=== PATIENT | female | born 1945 | race Caucasian/White ===

== ENCOUNTER 2021-02-23 11:09 | Day surgery (SDC) | payer MEDICARE, MEDICAID ==
[~2021-02-23] VITALS: Ht 165.1 cm; Wt 69.0 kg
[~2021-02-23 11:09] MED LIST: SODIUM CHLORIDE 0.9% 1,000 ML IV SCH
[2021-02-23 12:01] VITALS: BP 94/61
[2021-02-23] MEDS ORDERED: FENTANYL PF 100 MCG/2ML ONE (12:11)
[2021-02-23] MEDS ORDERED: VERAPAMIL 2.5 MG/ML, 2ML ONE (12:12)
[2021-02-23] MEDS ORDERED: HEPARIN 1,000 UNITS/ML, 10ML ONE (12:12)
[2021-02-23] MEDS ORDERED: MIDAZOLAM 1 MG/ML, 5ML ONE (12:12)
[2021-02-23] MEDS ORDERED: BIVALIRUDIN 250 MG ONE (12:12)
[2021-02-23] MEDS ORDERED: LIDOCAINE-MPF 1%, 5ML ONE (12:12)
[2021-02-23] MEDS ORDERED: NITROGLYCERIN 5 MG/ML, 10ML ONE (12:13)
[2021-02-23 12:20] LABS: BASOPHILS % (AUTO) 1 % (0-1); EOSINOPHILS % (AUTO) 2 % (1-7); LYMPHOCYTES % (AUTO) 15 % (22-44); MEAN CORPUSCULAR HEMOGLOBIN 26.5 pg (27.0-34.8); MEAN CORPUSCULAR HGB CONC 31.7 g/dL (32.4-35.8); MEAN PLATELET VOLUME 9.7 fL (7.4-10.4); MONOCYTES % (AUTO) 6 % (2-9); NEUTROPHILS % (AUTO) 77 % (42-75); PLATELET COUNT 176 x10^3/uL (130-400); RED BLOOD COUNT 4.41 x10^6/uL (3.82-5.3); RED CELL DISTRIBUTION WIDTH 16.6 % (9.6-15.2)
[2021-02-23] MEDS ORDERED: ONDANSETRON 2MG/ML, 2ML ONE (12:25)
[2021-02-23] MEDS ORDERED: FURO-93 PO (12:26)
[2021-02-23] MEDS ORDERED: methylPREDNISolone SOD SUCC 125 MG/2 ML ONE (12:26)
[2021-02-23] MEDS ORDERED: DIPHENHYDRAMINE 50 MG/ML, 1ML ONE (12:26)
[2021-02-23] MEDS ORDERED: CARV25TA PO (12:26)
[2021-02-23] MEDS ORDERED: ATOR80TA PO (12:26)
[2021-02-23] MEDS ORDERED: ISOS40TA17 PO (12:26)
[2021-02-23] MEDS ORDERED: CLOP75TA52 PO (12:26)
[2021-02-23] MEDS ORDERED: LOPE-114 PO (12:26)
[2021-02-23] MEDS ORDERED: FAMO-79 PO (12:26)
[2021-02-23] MEDS ORDERED: POTA20TA14 PO (12:26)
[2021-02-23] MEDS ORDERED: NIAC500C8 PO (12:26)
[2021-02-23] MEDS ORDERED: ASPI-963 PO (12:26)
[2021-02-23] MEDS ORDERED: BUPR150T73 PO (12:26)
[2021-02-23] MEDS ORDERED: FLUT1AER INH (12:26)
[2021-02-23] MEDS ORDERED: METF500T17 PO (12:26)
[2021-02-23] MEDS ORDERED: SACU1TAB PO (12:26)
[2021-02-23] MEDS ORDERED: NITR0.4T41 SL (12:26)
[2021-02-23] MEDS ORDERED: GLIM4TAB PO (12:26)
[2021-02-23] MEDS ORDERED: DULA3PEN SQ (12:26)
[2021-02-23] MEDS ORDERED: TIOT18CA INH (12:26)
[2021-02-23] MEDS ORDERED: ALBU18HF INH (12:26)
[2021-02-23 12:28] LABS: ANION GAP 8 mmol/L (5-15); CALCIUM 9.2 mg/dL (8.5-10.1); CHLORIDE 104 mmol/L (98-107); CREATININE 0.93 mg/dL (0.55-1.02)
[2021-02-23] MEDS ORDERED: PLEASE ENTER ALLERGIES MC SCH (12:30)
[2021-02-23] MEDS ORDERED: FUROSEMIDE 40 MG/4 ML ONE (13:19)
== END 2021-02-23 15:31 | disposition home or self-care (01) ==
LOC: CACL 11:09
PROVIDERS: ATTEND Internal Medicine Cardiovascular Disease
DX: I11.0 Hypertensive heart disease with heart failure (principal); I50.23 Acute on chronic systolic (congestive) heart failure; I25.10 Atherosclerotic heart disease of native coronary artery without angina pectoris; I25.84 Coronary atherosclerosis due to calcified coronary lesion; I25.83 Coronary atherosclerosis due to lipid rich plaque; I25.82 Chronic total occlusion of coronary artery; I25.5 Ischemic cardiomyopathy; I25.2 Old myocardial infarction; E11.9 Type 2 diabetes mellitus without complications; E78.5 Hyperlipidemia, unspecified; Z79.82 Long term (current) use of aspirin; Z79.84 Long term (current) use of oral hypoglycemic drugs; Z79.899 Other long term (current) drug therapy; Z87.891 Personal history of nicotine dependence; Z88.2 Allergy status to sulfonamides; Z91.013 Allergy to seafood; Z99.81 Dependence on supplemental oxygen
CPT/HCPCS: 36415; 75630; 80048; 85025; 93458; 99156; 99157; C1769; C1894; J1200; J1644; J1940; J2250; J2405; J2930; J3010; Q9967; 75625; J0583

== ENCOUNTER 2021-03-23 10:37 | Inpatient (IN) | payer MEDICARE, MEDICAID ==
[~2021-03-23] VITALS: Ht 165.1 cm; Wt 71.2 kg
[~2021-03-23 10:37] MED LIST changes: +ALBU18HF INH; +ASPI-963 PO; +ATOR80TA PO; +BUPR150T73 PO; +CARV25TA PO; +CLOP75TA52 PO; +DULA3PEN SQ; +FAMO-79 PO; +FLUT1AER INH; +FURO-93 PO; +GLIM4TAB PO; +ISOS40TA17 PO; +LOPE-114 PO; +METF500T17 PO; +NIAC500C8 PO; +NITR0.4T41 SL; +POTA20TA14 PO; +SACU1TAB PO; -SODIUM CHLORIDE 0.9% 1,000 ML IV SCH; +TIOT18CA INH
[2021-03-23 11:34] VITALS: BP 107/61
[2021-03-23 11:58] LABS: BASOPHILS % (AUTO) 1 % (0-1); EOSINOPHILS % (AUTO) 2 % (1-7); LYMPHOCYTES % (AUTO) 15 % (22-44); MEAN CORPUSCULAR HEMOGLOBIN 26.6 pg (27.0-34.8); MEAN PLATELET VOLUME 9.9 fL (7.4-10.4); MONOCYTES % (AUTO) 8 % (2-9); NEUTROPHILS % (AUTO) 75 % (42-75); PLATELET COUNT 197 x10^3/uL (130-400); RED BLOOD COUNT 4.07 x10^6/uL (3.82-5.3); RED CELL DISTRIBUTION WIDTH 16.1 % (9.6-15.2)
[2021-03-23 12:07] LABS: ANION GAP 10 mmol/L (5-15); CALCIUM 9.3 mg/dL (8.5-10.1); CHLORIDE 103 mmol/L (98-107)
[2021-03-23] MEDS ORDERED: PROPOFOL 50 ML ONE (12:31)
[2021-03-23] MEDS ORDERED: FENTANYL PF 250 MCG/5ML ONE (12:31)
[2021-03-23] MEDS ORDERED: BIVALIRUDIN 250 MG ONE ×2 (12:55→14:30)
[2021-03-23] MEDS ORDERED: LIDOCAINE 2%, 20ML ONE (13:01)
[2021-03-23] MEDS ORDERED: ROCURONIUM 10MG/ML,5ML ONE (14:08)
[2021-03-23] MEDS ORDERED: PROPOFOL 10 MG/ML, 20ML ONE (14:16)
[2021-03-23] MEDS ORDERED: EPHEDRINE 50 MG/ML, 1ML IM PRN (14:30)
[2021-03-23] MEDS ORDERED: ACETAMINOPHEN 325 MG TABLET PO PRN (14:30)
[2021-03-23] MEDS ORDERED: morphine SULFATE 10 MG/ML, 1ML IVPush PRN (14:30)
[2021-03-23] MEDS ORDERED: PROMETHAZINE 25 MG/ML, 1ML IVPush PRN (14:30)
[2021-03-23] MEDS ORDERED: OXYcodone 5 MG/5 ML ORAL.SOL UDC PO PRN (14:30)
[2021-03-23] MEDS ORDERED: ONDANSETRON 2MG/ML, 2ML IVPush PRN (14:30)
[2021-03-23] MEDS ORDERED: DIAZEPAM 5 MG/ML, 2ML IVPush PRN (14:30)
[2021-03-23] MEDS ORDERED: DIPHENHYDRAMINE 50 MG/ML, 1ML IVPush PRN (14:30)
[2021-03-23] MEDS ORDERED: EPHEDRINE 50 MG/ML, 1ML IVPush PRN (14:30)
[2021-03-23] MEDS ORDERED: FENTANYL PF 100 MCG/2ML IV PRN (14:30)
[2021-03-23] MEDS ORDERED: NITROGLYCERIN SINGLE TAB 0.4 MG SL PRN (15:00)
[2021-03-23] MEDS ORDERED: MIDAZOLAM 1 MG/ML, 2ML ONE (15:20)
[2021-03-23] MEDS ORDERED: FENTANYL PF 100 MCG/2ML ONE (15:20)
[2021-03-23] MEDS ORDERED: MORPHINE SULFATE 4 MG/ML, 1ML ONE ×2 (16:07→16:32)
[2021-03-23] MEDS: morphine SULFATE 10 MG/ML, 1ML IVPush PRN ×5 (16:18→17:53)
[2021-03-23] MEDS ORDERED: FUROSEMIDE 40 MG/4 ML ONE (16:37)
[2021-03-23] MEDS ORDERED: ONDANSETRON 2MG/ML, 2ML ONE (16:41)
[2021-03-23] MEDS ORDERED: FUROSEMIDE 40 MG/4 ML IV ONE (17:00)
[2021-03-23] MEDS: SODIUM CHLORIDE 0.9% 1,000 ML IV SCH ×2 (17:44→21:26)
[2021-03-23 19:41] VITALS: BP 108/68
[2021-03-23] MEDS ORDERED: CARVEDILOL 25 MG TABLET PO SCH (21:00)
[2021-03-23] MEDS: BUPROPION SR 150 MG TABLET PO SCH (21:25)
[2021-03-23] MEDS: ATORVASTATIN 80 MG TABLET PO SCH (21:26)
[2021-03-23] MEDS: ISOSORBIDE DINITRATE 30 MG TABLET PO SCH (21:26)
[2021-03-24 01:35] VITALS: BP 111/74
[2021-03-24 04:51] LABS: ANION GAP 9 mmol/L (5-15); CALCIUM 8.5 mg/dL (8.5-10.1); CHLORIDE 98 mmol/L (98-107)
[2021-03-24 04:52] LABS: CREATININE 1.07 mg/dL (0.55-1.02)
[2021-03-24] MEDS: SODIUM CHLORIDE 0.9% 1,000 ML IV SCH ×3 (07:00→23:00)
[2021-03-24 07:24] VITALS: BP 95/57
[2021-03-24] MEDS ORDERED: NIACIN 500 MG TABLET.ER PO SCH (09:00)
[2021-03-24] MEDS: SACUBITRIL/VALSARTAN 24MG-26MG TAB PO SCH (10:36)
[2021-03-24] MEDS: ISOSORBIDE DINITRATE 30 MG TABLET PO SCH ×2 (10:36→21:26)
[2021-03-24] MEDS: [UNRECOGNIZED DRUG - OTHER] PO SCH (10:37)
[2021-03-24] MEDS: ASPIRIN 81 MG TABLET EC PO SCH (10:37)
[2021-03-24] MEDS: BUPROPION SR 150 MG TABLET PO SCH ×2 (10:37→21:26)
[2021-03-24] MEDS: CLOPIDOGREL 75 MG TABLET PO SCH (10:38)
[2021-03-24] MEDS: FUROSEMIDE 40 MG TABLET PO SCH (10:38)
[2021-03-24] MEDS: POTASSIUM CHLORIDE 20 MEQ TAB.ER.PRT PO SCH (10:38)
[2021-03-24 13:04] VITALS: BP 102/60
[2021-03-24 20:05] VITALS: BP 95/62
[2021-03-24 21:25] VITALS: BP 94/65
[2021-03-24] MEDS: CARVEDILOL 25 MG TABLET PO SCH (21:27)
[2021-03-24] MEDS: ATORVASTATIN 80 MG TABLET PO SCH (21:27)
[2021-03-25 01:11] VITALS: BP 96/64
[2021-03-25] MEDS: SODIUM CHLORIDE 0.9% 1,000 ML IV SCH ×3 (05:51→22:28)
[2021-03-25 07:48] VITALS: BP 97/63
[2021-03-25] MEDS: BUPROPION SR 150 MG TABLET PO SCH ×2 (08:29→20:18)
[2021-03-25] MEDS: CLOPIDOGREL 75 MG TABLET PO SCH (08:30)
[2021-03-25] MEDS: FUROSEMIDE 40 MG TABLET PO SCH (08:30)
[2021-03-25] MEDS: CARVEDILOL 25 MG TABLET PO SCH (08:30)
[2021-03-25] MEDS: ASPIRIN 81 MG TABLET EC PO SCH (08:30)
[2021-03-25] MEDS: [UNRECOGNIZED DRUG - OTHER] PO SCH (08:30)
[2021-03-25] MEDS: POTASSIUM CHLORIDE 20 MEQ TAB.ER.PRT PO SCH (08:30)
[2021-03-25] MEDS: ISOSORBIDE DINITRATE 30 MG TABLET PO SCH ×2 (08:30→20:18)
[2021-03-25] MEDS ORDERED: FUROSEMIDE 20 MG/2 ML ONE (10:39)
[2021-03-25] MEDS: FUROSEMIDE 20 MG/2 ML IV ONE ×2 (10:47→11:00)
[2021-03-25] MEDS: SACUBITRIL/VALSARTAN 24MG-26MG TAB PO SCH ×2 (10:47→11:10)
[2021-03-25 11:07] VITALS: BP 82/51
[2021-03-25 11:10] LABS: ANION GAP 9 mmol/L (5-15); CALCIUM 8.9 mg/dL (8.5-10.1); CHLORIDE 98 mmol/L (98-107); CREATININE 1.18 mg/dL (0.55-1.02)
[2021-03-25 14:05] VITALS: BP 108/68
[2021-03-25 20:13] VITALS: BP 92/59
[2021-03-25] MEDS: ATORVASTATIN 80 MG TABLET PO SCH (20:18)
[2021-03-26 00:52] VITALS: BP 98/64
[2021-03-26] MEDS ORDERED: ACETAMINOPHEN 325 MG TABLET PO ONE (04:00)
[2021-03-26] MEDS: SODIUM CHLORIDE 0.9% 1,000 ML IV SCH ×3 (06:00→22:32)
[2021-03-26 08:38] VITALS: BP 86/59
[2021-03-26] MEDS ORDERED: CARV25TA PO (08:39)
[2021-03-26] MEDS: FUROSEMIDE 40 MG TABLET PO SCH (09:00)
[2021-03-26] MEDS: SACUBITRIL/VALSARTAN 24MG-26MG TAB PO SCH (09:00)
[2021-03-26] MEDS: POTASSIUM CHLORIDE 20 MEQ TAB.ER.PRT PO SCH (10:39)
[2021-03-26] MEDS: BUPROPION SR 150 MG TABLET PO SCH ×2 (10:39→20:35)
[2021-03-26] MEDS: [UNRECOGNIZED DRUG - OTHER] PO SCH (10:39)
[2021-03-26] MEDS: ASPIRIN 81 MG TABLET EC PO SCH (10:39)
[2021-03-26] MEDS: CLOPIDOGREL 75 MG TABLET PO SCH (10:40)
[2021-03-26] MEDS ORDERED: SUCCINYLCHOLINE 20 MG/ML, 10ML ONE (13:01)
[2021-03-26 13:36] VITALS: BP 96/64
[2021-03-26] MEDS ORDERED: OXYcodone/APAP 5/325MG TABLET PO PRN (17:00)
[2021-03-26 20:00] VITALS: BP 104/66
[2021-03-26] MEDS: ATORVASTATIN 80 MG TABLET PO SCH (20:35)
[2021-03-27] MEDS: ACETAMINOPHEN 325 MG TABLET PO PRN (00:43)
[2021-03-27 00:56] VITALS: BP 108/71
[2021-03-27 05:48] LABS: BASOPHILS % (AUTO) 1 % (0-1); EOSINOPHILS % (AUTO) 2 % (1-7); LYMPHOCYTES % (AUTO) 23 % (22-44); MEAN CORPUSCULAR HEMOGLOBIN 26.7 pg (27.0-34.8); MEAN CORPUSCULAR HGB CONC 32.3 g/dL (32.4-35.8); MEAN PLATELET VOLUME 9.6 fL (7.4-10.4); MONOCYTES % (AUTO) 11 % (2-9); NEUTROPHILS % (AUTO) 64 % (42-75); PLATELET COUNT 188 x10^3/uL (130-400); RED BLOOD COUNT 3.68 x10^6/uL (3.82-5.3); RED CELL DISTRIBUTION WIDTH 15.9 % (9.6-15.2)
[2021-03-27 06:09] LABS: ALANINE AMINOTRANSFERASE 13 U/L (12-78); ALBUMIN 2.8 g/dL (3.4-5.0); ANION GAP 7 mmol/L (5-15); CALCIUM 9.3 mg/dL (8.5-10.1); CHLORIDE 103 mmol/L (98-107); CREATININE 0.76 mg/dL (0.55-1.02)
[2021-03-27 06:19] LABS: ALKALINE PHOSPHATASE 193 U/L (45-117); BILIRUBIN,TOTAL 0.5 mg/dL (0.2-1.0); TOTAL PROTEIN 6.2 g/dL (6.4-8.2)
[2021-03-27 09:21] VITALS: BP 94/61
[2021-03-27] MEDS: SACUBITRIL/VALSARTAN 24MG-26MG TAB PO SCH (09:27)
[2021-03-27] MEDS: FUROSEMIDE 40 MG TABLET PO SCH (09:28)
[2021-03-27] MEDS: ASPIRIN 81 MG TABLET EC PO SCH (09:29)
[2021-03-27] MEDS: CLOPIDOGREL 75 MG TABLET PO SCH (09:29)
[2021-03-27] MEDS: [UNRECOGNIZED DRUG - OTHER] PO SCH (09:29)
[2021-03-27] MEDS: POTASSIUM CHLORIDE 20 MEQ TAB.ER.PRT PO SCH (09:29)
[2021-03-27] MEDS: BUPROPION SR 150 MG TABLET PO SCH ×2 (09:29→21:00)
[2021-03-27] MEDS ORDERED: DEXTROSE 50%, 50ML SYRINGE IVPush PRN (12:00)
[2021-03-27] MEDS ORDERED: GLUCAGON 1 MG IM PRN (12:00)
[2021-03-27] MEDS ORDERED: DEXTROSE 4 GM TAB.CHEW PO PRN (12:00)
[2021-03-27] MEDS: INSULIN REGULAR 100 UNITS/ML, 3ML VIAL SQ-INSULIN SCH ×3 (12:55→21:00)
[2021-03-27] MEDS: FLUTICASONE/VILANTEROL 100-25MCG/INH INH SCH (12:56)
[2021-03-27] MEDS: ALBUTEROL HFA 90 MCG/SPRAY INH SCH ×2 (12:57→17:17)
[2021-03-27 13:00] VITALS: BP 90/60
[2021-03-27 14:00] VITALS: BP 94/56
[2021-03-27] MEDS: CARVEDILOL 3.125 MG TABLET PO SCH (17:56)
[2021-03-27] MEDS ORDERED: OMNIPAQUE 350 MG/ML, 100ML BOTTLE ONE (18:30)
[2021-03-27 18:49] VITALS: BP 122/78
[2021-03-27] MEDS ORDERED: INSULIN GLARGINE 100 UNITS/ML, PEN SQ-INSULIN SCH (21:00)
[2021-03-27] MEDS: ATORVASTATIN 80 MG TABLET PO SCH (21:44)
[2021-03-27] MEDS: SODIUM CHLORIDE FLUSH 10ML SYR IVF SCH (21:45)
[2021-03-28] MEDS: ALBUTEROL HFA 90 MCG/SPRAY INH SCH ×3 (00:15→12:32)
[2021-03-28 00:18] VITALS: BP_SYST 103; BP_SYST 99; BP_DIAS 59; BP_DIAS 70
[2021-03-28] MEDS: ACETAMINOPHEN 325 MG TABLET PO PRN (02:06)
[2021-03-28] MEDS: CARVEDILOL 3.125 MG TABLET PO SCH ×2 (06:00→18:14)
[2021-03-28 06:58] VITALS: BP 103/68
[2021-03-28] MEDS: INSULIN REGULAR 100 UNITS/ML, 3ML VIAL SQ-INSULIN SCH ×4 (08:38→20:24)
[2021-03-28] MEDS: SODIUM CHLORIDE FLUSH 10ML SYR IVF SCH ×2 (08:40→20:25)
[2021-03-28] MEDS: FLUTICASONE/VILANTEROL 100-25MCG/INH INH SCH (08:40)
[2021-03-28] MEDS: FUROSEMIDE 40 MG TABLET PO SCH (08:42)
[2021-03-28] MEDS: CLOPIDOGREL 75 MG TABLET PO SCH (08:42)
[2021-03-28] MEDS: BUPROPION SR 150 MG TABLET PO SCH ×2 (08:42→20:25)
[2021-03-28] MEDS: [UNRECOGNIZED DRUG - OTHER] PO SCH (08:42)
[2021-03-28] MEDS: ASPIRIN 81 MG TABLET EC PO SCH (08:42)
[2021-03-28] MEDS: SACUBITRIL/VALSARTAN 24MG-26MG TAB PO SCH (08:42)
[2021-03-28] MEDS: POTASSIUM CHLORIDE 20 MEQ TAB.ER.PRT PO SCH (08:42)
[2021-03-28 13:20] VITALS: BP 93/62
[2021-03-28] MEDS ORDERED: ALBUTEROL HFA 90 MCG/SPRAY INH PRN (15:00)
[2021-03-28] MEDS: LOPERAMIDE 2 MG CAPSULE PO PRN ×2 (15:06→20:25)
[2021-03-28 19:09] VITALS: BP 97/66
[2021-03-28] MEDS: INSULIN GLARGINE 100 UNITS/ML, PEN SQ-INSULIN SCH (20:24)
[2021-03-28] MEDS: ATORVASTATIN 80 MG TABLET PO SCH (20:25)
[2021-03-29] MEDS: ACETAMINOPHEN 325 MG TABLET PO PRN (00:51)
[2021-03-29 00:54] VITALS: BP 100/68
[2021-03-29 05:23] VITALS: BP 133/81
[2021-03-29] MEDS: CARVEDILOL 3.125 MG TABLET PO SCH ×2 (05:25→16:53)
[2021-03-29 05:38] LABS: BASOPHILS % (AUTO) 1 % (0-1); EOSINOPHILS % (AUTO) 3 % (1-7); LYMPHOCYTES % (AUTO) 22 % (22-44); MEAN CORPUSCULAR HEMOGLOBIN 26.8 pg (27.0-34.8); MEAN PLATELET VOLUME 9.3 fL (7.4-10.4); MONOCYTES % (AUTO) 11 % (2-9); NEUTROPHILS % (AUTO) 63 % (42-75); PLATELET COUNT 180 x10^3/uL (130-400)
[2021-03-29 05:47] LABS: CHLORIDE 104 mmol/L (98-107)
[2021-03-29 05:53] LABS: ANION GAP 5 mmol/L (5-15); CALCIUM 9.1 mg/dL (8.5-10.1); CREATININE 0.72 mg/dL (0.55-1.02)
[2021-03-29 07:05] VITALS: BP 108/72
[2021-03-29] MEDS: INSULIN REGULAR 100 UNITS/ML, 3ML VIAL SQ-INSULIN SCH ×4 (07:59→21:00)
[2021-03-29] MEDS: SODIUM CHLORIDE FLUSH 10ML SYR IVF SCH ×2 (07:59→21:56)
[2021-03-29] MEDS: [UNRECOGNIZED DRUG - OTHER] PO SCH (08:00)
[2021-03-29] MEDS: FLUTICASONE/VILANTEROL 100-25MCG/INH INH SCH (08:00)
[2021-03-29] MEDS: CLOPIDOGREL 75 MG TABLET PO SCH (08:00)
[2021-03-29] MEDS: BUPROPION SR 150 MG TABLET PO SCH ×2 (08:00→21:55)
[2021-03-29] MEDS: POTASSIUM CHLORIDE 20 MEQ TAB.ER.PRT PO SCH (08:00)
[2021-03-29] MEDS: ASPIRIN 81 MG TABLET EC PO SCH (08:01)
[2021-03-29] MEDS: FUROSEMIDE 40 MG TABLET PO SCH (08:01)
[2021-03-29] MEDS: SACUBITRIL/VALSARTAN 24MG-26MG TAB PO SCH (08:01)
[2021-03-29] MEDS: LOPERAMIDE 2 MG CAPSULE PO PRN (08:11)
[2021-03-29 10:19] LABS: INTERNATIONAL NORMALIZED RATIO 1.02 (0.93-1.1); PROTHROMBIN TIME 10.9 Seconds (9.6-11.5)
[2021-03-29 13:56] VITALS: BP 97/48
[2021-03-29 19:15] VITALS: BP 120/73
[2021-03-29] MEDS: ATORVASTATIN 80 MG TABLET PO SCH (21:55)
[2021-03-29] MEDS: INSULIN GLARGINE 100 UNITS/ML, PEN SQ-INSULIN SCH (21:56)
[2021-03-30 01:05] VITALS: BP 111/69
[2021-03-30 05:22] VITALS: BP 131/83
[2021-03-30] MEDS: CARVEDILOL 3.125 MG TABLET PO SCH ×2 (05:24→17:07)
[2021-03-30 07:32] VITALS: BP 106/70
[2021-03-30] MEDS: POTASSIUM CHLORIDE 20 MEQ TAB.ER.PRT PO SCH (07:38)
[2021-03-30] MEDS: [UNRECOGNIZED DRUG - OTHER] PO SCH (07:38)
[2021-03-30] MEDS: FLUTICASONE/VILANTEROL 100-25MCG/INH INH SCH (07:38)
[2021-03-30] MEDS: SACUBITRIL/VALSARTAN 24MG-26MG TAB PO SCH (07:38)
[2021-03-30] MEDS: LOPERAMIDE 2 MG CAPSULE PO PRN (07:38)
[2021-03-30] MEDS: BUPROPION SR 150 MG TABLET PO SCH ×2 (07:38→20:30)
[2021-03-30] MEDS: FUROSEMIDE 40 MG TABLET PO SCH (07:38)
[2021-03-30] MEDS: SODIUM CHLORIDE FLUSH 10ML SYR IVF SCH ×2 (07:39→20:30)
[2021-03-30] MEDS: INSULIN REGULAR 100 UNITS/ML, 3ML VIAL SQ-INSULIN SCH ×4 (07:42→20:50)
[2021-03-30 08:16] LABS: BASOPHILS % (AUTO) 1 % (0-1); EOSINOPHILS % (AUTO) 3 % (1-7); LYMPHOCYTES % (AUTO) 18 % (22-44); MEAN CORPUSCULAR HEMOGLOBIN 26.2 pg (27.0-34.8); MEAN CORPUSCULAR HGB CONC 31.4 g/dL (32.4-35.8); MEAN PLATELET VOLUME 9.2 fL (7.4-10.4); MONOCYTES % (AUTO) 10 % (2-9); NEUTROPHILS % (AUTO) 68 % (42-75); PLATELET COUNT 198 x10^3/uL (130-400)
[2021-03-30 08:31] LABS: ANION GAP 5 mmol/L (5-15); CALCIUM 9.7 mg/dL (8.5-10.1); CHLORIDE 104 mmol/L (98-107); CREATININE 0.76 mg/dL (0.55-1.02)
[2021-03-30] MEDS ORDERED: NALOXONE 1 MG/ML, 2ML ONE (10:20)
[2021-03-30] MEDS ORDERED: FENTANYL PF 100 MCG/2ML ONE (10:20)
[2021-03-30] MEDS ORDERED: MIDAZOLAM 1 MG/ML, 5ML ONE (10:20)
[2021-03-30] MEDS ORDERED: FLUMAZENIL 0.1 MG/1 ML, 5ML ONE (10:20)
[2021-03-30] MEDS: CLOPIDOGREL 75 MG TABLET PO SCH (12:20)
[2021-03-30] MEDS: ASPIRIN 81 MG TABLET EC PO SCH (12:21)
[2021-03-30] MEDS: ACETAMINOPHEN 325 MG TABLET PO PRN ×2 (12:23→20:30)
[2021-03-30 14:17] VITALS: BP 102/69
[2021-03-30 19:31] VITALS: BP 105/71
[2021-03-30] MEDS ORDERED: ONDANSETRON 2MG/ML, 2ML IVPush PRN (20:00)
[2021-03-30] MEDS: ATORVASTATIN 80 MG TABLET PO SCH (20:30)
[2021-03-30] MEDS: INSULIN GLARGINE 100 UNITS/ML, PEN SQ-INSULIN SCH (20:49)
[2021-03-31 01:58] VITALS: BP 101/68
[2021-03-31] MEDS: ACETAMINOPHEN 325 MG TABLET PO PRN (03:57)
[2021-03-31] MEDS: CARVEDILOL 3.125 MG TABLET PO SCH ×2 (05:42→17:14)
[2021-03-31 06:45] LABS: BASOPHILS % (AUTO) 1 % (0-1); EOSINOPHILS % (AUTO) 3 % (1-7); LYMPHOCYTES % (AUTO) 22 % (22-44); MEAN CORPUSCULAR HEMOGLOBIN 26.8 pg (27.0-34.8); MEAN CORPUSCULAR HGB CONC 32.4 g/dL (32.4-35.8); MEAN PLATELET VOLUME 9.6 fL (7.4-10.4); MONOCYTES % (AUTO) 13 % (2-9); NEUTROPHILS % (AUTO) 62 % (42-75); PLATELET COUNT 181 x10^3/uL (130-400); RED BLOOD COUNT 3.19 x10^6/uL (3.82-5.3); RED CELL DISTRIBUTION WIDTH 16.3 % (9.6-15.2)
[2021-03-31 06:49] LABS: ALANINE AMINOTRANSFERASE 13 U/L (12-78); ALBUMIN 2.8 g/dL (3.4-5.0); ANION GAP 8 mmol/L (5-15); CALCIUM 9.1 mg/dL (8.5-10.1); CHLORIDE 104 mmol/L (98-107)
[2021-03-31 06:52] LABS: ALKALINE PHOSPHATASE 167 U/L (45-117); BILIRUBIN,TOTAL 0.6 mg/dL (0.2-1.0); CREATININE 0.93 mg/dL (0.55-1.02)
[2021-03-31] MEDS: INSULIN REGULAR 100 UNITS/ML, 3ML VIAL SQ-INSULIN SCH ×3 (07:00→17:21)
[2021-03-31 08:27] VITALS: BP 97/64
[2021-03-31] MEDS: FUROSEMIDE 40 MG TABLET PO SCH (08:32)
[2021-03-31] MEDS: [UNRECOGNIZED DRUG - OTHER] PO SCH (08:32)
[2021-03-31] MEDS: CLOPIDOGREL 75 MG TABLET PO SCH (08:32)
[2021-03-31] MEDS: ASPIRIN 81 MG TABLET EC PO SCH (08:32)
[2021-03-31] MEDS: BUPROPION SR 150 MG TABLET PO SCH (08:32)
[2021-03-31] MEDS: POTASSIUM CHLORIDE 20 MEQ TAB.ER.PRT PO SCH (08:33)
[2021-03-31] MEDS: SACUBITRIL/VALSARTAN 24MG-26MG TAB PO SCH (08:33)
[2021-03-31] MEDS: SODIUM CHLORIDE FLUSH 10ML SYR IVF SCH (10:55)
[2021-03-31] MEDS: FLUTICASONE/VILANTEROL 100-25MCG/INH INH SCH (10:55)
[2021-03-31 14:00] VITALS: BP 100/55
[2021-03-31] MEDS ORDERED: ALPR0.254 PO (15:26)
[2021-03-31] MEDS ORDERED: ONDANSETRON 4 MG TABLET PO ONE (15:30)
== END 2021-03-31 20:01 | disposition home or self-care (01) | DRG 246 ==
LOC: CACL 10:37 → 5SO 14:51 → OBSVTOIN 14:51 → 5SO 17:12
PROVIDERS: ADMIT Internal Medicine Cardiovascular Disease; ATTEND Internal Medicine
PROC: 4A023N7 Measurement of Cardiac Sampling and Pressure, Left Heart, Percutaneous Approach (ICD-10-PCS; 2021-03-23)
PROC: B2111ZZ Fluoroscopy of Multiple Coronary Arteries using Low Osmolar Contrast (ICD-10-PCS; 2021-03-23)
PROC: 027034Z Dilation of Coronary Artery, One Artery with Drug-eluting Intraluminal Device, Percutaneous Approach (ICD-10-PCS; principal; 2021-03-23 12:00)
PROC: 0FB03ZX Excision of Liver, Percutaneous Approach, Diagnostic (ICD-10-PCS; 2021-03-30)
DX: I25.10 Atherosclerotic heart disease of native coronary artery without angina pectoris (principal); I50.23 Acute on chronic systolic (congestive) heart failure; C25.9 Malignant neoplasm of pancreas, unspecified; C78.00 Secondary malignant neoplasm of unspecified lung; C78.7 Secondary malignant neoplasm of liver and intrahepatic bile duct; I11.0 Hypertensive heart disease with heart failure; I25.5 Ischemic cardiomyopathy; R19.09 Other intra-abdominal and pelvic swelling, mass and lump; F41.9 Anxiety disorder, unspecified; E11.65 Type 2 diabetes mellitus with hyperglycemia; I27.20 Pulmonary hypertension, unspecified; I34.0 Nonrheumatic mitral (valve) insufficiency; I71.4 Abdominal aortic aneurysm, without rupture; Z79.02 Long term (current) use of antithrombotics/antiplatelets; Z79.82 Long term (current) use of aspirin; I95.81 Postprocedural hypotension; F32.9 Major depressive disorder, single episode, unspecified; E78.5 Hyperlipidemia, unspecified; Z88.2 Allergy status to sulfonamides; Z91.048 Other nonmedicinal substance allergy status; Z91.013 Allergy to seafood; R59.1 Generalized enlarged lymph nodes; Z20.822 Contact with and (suspected) exposure to COVID-19
CPT/HCPCS: 36415; 47000; 71045; 71250; 74178; 76942; 80048; 80053; 82962; 83036; 83880; 84443; 85014; 85018; 85025; 85610; 86301; 87635; 88307; 88333; 93005; 93454; 99156; 99157; C1769; C1894; C8929; C9600; G0378; J0583; J1815; J1940; J2250; J2405; J2704; J3010; Q0162; Q9957; Q9967; C1725; C1874; C1887; J0330; J2270; J2310; J7030